=== PATIENT | female | born 1995 | race Caucasian/White ===

== ENCOUNTER 2020-04-15 16:45 | Emergency (ER) | payer SELFPAY ==
[2020-04-15 16:56] VITALS: BP 103/60; PULSE 81; TEMP 97.7; BMI 22.6
== END 2020-04-15 18:30 | disposition home or self-care (01) ==
LOC: JER 16:45 → JERFT 16:45
DX: A60.04 Herpesviral vulvovaginitis (principal); N77.1 Vaginitis, vulvitis and vulvovaginitis in diseases classified elsewhere
CPT/HCPCS: 36415; 87070; 87205; 87255; 87491; 87529; 87591; 87661; 99283-25